=== PATIENT | female | born 1950 | race Caucasian/White ===

== ENCOUNTER 2018-07-13 08:39 | Emergency (ER) | payer OTHER ==
[~2018-07-13] VITALS: Ht 152.4 cm; Wt 518.0 kg
[2018-07-13] MEDS ORDERED: HYZAAR 100-251 EACH (08:59)
== END 2018-07-13 10:59 | disposition home or self-care (01) ==
LOC: ER 08:39
DX: J32.8 Other chronic sinusitis (principal); J40 Bronchitis, not specified as acute or chronic

== ENCOUNTER 2018-09-03 11:34 | Inpatient (IN) | payer OTHER ==
[~2018-09-03] VITALS: Ht 152.4 cm; Wt 65.3 kg
[~2018-09-03 11:34] MED LIST: HYZAAR 100-251 EACH
[2018-10-17] MEDS ORDERED: LIPITOR20 MG PO (13:12)
[2018-10-17] MEDS ORDERED: ASPIRIN81 M1 PO (13:13)
[2018-10-17] MEDS ORDERED: CATAFLAN PO (13:13)
[2018-10-17] MEDS ORDERED: AMBIEN10 MG PO (13:14)
[2018-10-17] MEDS ORDERED: FISH PO (13:15)
[2018-10-17] MEDS ORDERED: BIOTIN PO (13:16)
[2018-10-17] MEDS ORDERED: MULTIPLE VITAM1 EACH PO (13:16)
[2018-10-17] MEDS ORDERED: CALTRATE 600+D1 EACH PO (13:16)
[2018-10-21] MEDS ORDERED: FISH OIL 1,0001 EAC4 PO (09:07)
[2018-10-21] MEDS ORDERED: BIOTIN10000 MCG PO (09:09)
[2018-10-21] MEDS ORDERED: DICLOFENAC POTA50 MG PO (09:11)
[2018-10-21] MEDS ORDERED: VITAMIN C1000 MG PO (09:50)
== END 2018-10-24 19:51 | DRG 470 ==
LOC: SURG 10-21 08:32 → O/R 10-21 08:32 → SURH 10-21 10:00 → SURG 10-21 15:42
PROVIDERS: ADMIT Orthopaedic Surgery
PROC: 0SRD0J9 Replacement of Left Knee Joint with Synthetic Substitute, Cemented, Open Approach (ICD-10-PCS; principal; 2018-10-21 10:00)
DX: M17.12 Unilateral primary osteoarthritis, left knee (principal); D62 Acute posthemorrhagic anemia; M85.662 Other cyst of bone, left lower leg; I10 Essential (primary) hypertension; J40 Bronchitis, not specified as acute or chronic; J32.9 Chronic sinusitis, unspecified

== ENCOUNTER 2023-06-14 07:33 | Outpatient (CLI) | payer OTHER ==
[~2023-06-14 07:33] MED LIST changes: +AMBIEN10 MG PO; +ASPIRIN81 M1 PO; +BIOTIN PO; +BIOTIN10000 MCG PO; +CALTRATE 600+D1 EACH PO; +CATAFLAN PO; +DICLOFENAC POTA50 MG PO; +FISH OIL 1,0001 EAC4 PO; +FISH PO; +LIPITOR20 MG PO; +MULTIPLE VITAM1 EACH PO; +VITAMIN C1000 MG PO
[2023-06-14 08:06] LABS: HEMATOCRIT 34.3 % (36.0-45.00); HEMOGLOBIN 11.8 g/dL (12.0-15.00); MEAN CELL VOLUME 83.9 fL (80.00-100.00); MEAN CORPUSCULAR HEMOGLOBIN 28.8 pg (27.00-32.0); MEAN CORPUSCULAR HGB CONC 34.3 g/dl (32.0-36.0); PLATELET COUNT 197 K/uL (150-450); RED BLOOD COUNT 4.09 M/uL (4.00-6.00)
[2023-06-14 08:33] LABS: PH,URINE 7.5 (5.0-8.0); URINE APPEARANCE Clear; URINE BILIRRUBIN Negative (NEGATIVE); URINE BLOOD Negative; URINE COLOR Yellow; URINE GLUCOSE Negative (NEGATIVE); URINE LEUKOCYTE Negative; URINE NITRATE Negative; URINE PROTEIN Negative (NEGATIVE); URINE UROBILINOGEN 0.2 E.U./dl
[2023-06-14 08:36] LABS: URINE EPITHELIAL CELLS 1.8 uL (0.0-38.8); URINE WBC 3.3 uL (0.0-23.2)
[2023-06-14 08:37] LABS: INR 0.97; PARTIAL THROMBOPLASTIN TIME 25.4 SECONDS (22.0-34.0); PROTHROMBIN TIME 10.2 SECONDS (9.0-11.5)
[2023-06-14 08:38] LABS: URINE BACTERIA 1.2 uL (0.0-1933); URINE RBC 0.4 uL (0.0-20.8)
[2023-06-14 08:41] LABS: ALBUMIN 3.9 gm/dL (3.4-5.0); BILIRUBIN TOTAL 0.66 mg/dL (0.3-1.2); CALCIUM 9.8 mg/dL (8.5-10.1); CREATININE SERUM 0.73 mg/dL (0.55-1.02); GFR 78.15; GLOBULINA 3.3 G/DL (2.4-3.5); POTASSIUM 3.58 mEq/L (3.5-5.1); TOTAL PROTEIN 7.2 gm/dL (6.4-8.2)
== END 2023-06-14 07:34 | disposition home or self-care (01) ==
LOC: RAD 07:33 → LAB 07:33
PROVIDERS: ATTEND Orthopaedic Surgery
DX: D64.9 Anemia, unspecified (principal); E88.89 Other specified metabolic disorders; D68.8 Other specified coagulation defects; N39.0 Urinary tract infection, site not specified; E11.9 Type 2 diabetes mellitus without complications; Z20.822 Contact with and (suspected) exposure to COVID-19; E03.8 Other specified hypothyroidism; E83.42 Hypomagnesemia; I10 Essential (primary) hypertension; Z76.89 Persons encountering health services in other specified circumstances

== ENCOUNTER 2023-07-06 10:19 | Outpatient (CLI) | payer OTHER ==
[2023-07-06 12:57] LABS: COL EPI 168 SECONDS (82-175)
== END 2023-07-06 23:00 | disposition home or self-care (01) ==
LOC: LAB 10:19
PROVIDERS: ATTEND Orthopaedic Surgery
DX: D68.8 Other specified coagulation defects (principal)

== ENCOUNTER 2023-07-08 07:11 | Day surgery (SDC) | payer OTHER ==
[2023-07-08] MEDS ORDERED: CEFAZOLIN SODIUM 1,000 MG VIAL ONE (09:16)
[2023-07-08] MEDS ORDERED: BUPIVACAINE HCL/PF 0.5% 30ML ML ONE (10:32)
[2023-07-08] MEDS ORDERED: BUPIVACAINE HCL 30 ML VIAL IJ ONE (11:15)
[2023-07-08] MEDS ORDERED: CEFAZOLIN SODIUM 1,000 MG VIAL IV ONE (11:15)
[2023-07-08] MEDS ORDERED: ONDANSETRON HCL 2 MG/ML VIAL ONE (14:08)
[2023-07-08] MEDS ORDERED: FAMOTIDINE/PF 20 MG/2 ML VIAL ONE (15:01)
== END 2023-07-08 17:20 | disposition home or self-care (01) ==
LOC: CIR.AMB 07:11
PROVIDERS: ATTEND Orthopaedic Surgery
DX: M20.11 Hallux valgus (acquired), right foot (principal); M20.41 Other hammer toe(s) (acquired), right foot; Z20.822 Contact with and (suspected) exposure to COVID-19
CPT/HCPCS: 28285 ×2; L8699

== ENCOUNTER 2023-12-04 07:01 | Outpatient (CLI) | payer OTHER ==
[2023-12-04 08:58] LABS: ALBUMIN 3.9 gm/dL (3.4-5.0); BILIRUBIN TOTAL 0.55 mg/dL (0.3-1.2); CALCIUM 9.5 mg/dL (8.5-10.1); CREATININE SERUM 0.75 mg/dL (0.55-1.02); GFR 75.54; GLOBULINA 3.2 G/DL (2.4-3.5); PHOSPHOROUS 3.7 mg/dL (2.5-4.9); POTASSIUM 3.82 mEq/L (3.5-5.1); TOTAL PROTEIN 7.1 gm/dL (6.4-8.2)
[2023-12-16 07:54] LABS: VITAMIN K 0.82
== END 2023-12-04 07:04 | disposition home or self-care (01) ==
LOC: LAB 07:01
PROVIDERS: ATTEND Orthopaedic Surgery
DX: E55.9 Vitamin D deficiency, unspecified (principal); M85.9 Disorder of bone density and structure, unspecified; E56.1 Deficiency of vitamin K; E21.3 Hyperparathyroidism, unspecified; E88.89 Other specified metabolic disorders; M81.8 Other osteoporosis without current pathological fracture